=== PATIENT | female | born 1950 | race Caucasian/White ===

== ENCOUNTER 2018-10-02 09:24 | Emergency (ER) | payer MEDICARE ==
[~2018-10-02] VITALS: Ht 170.2 cm; Wt 86.4 kg
[2018-10-02 09:25] VITALS: BP 164/73
[2018-10-02] MEDS ORDERED: BENA10TA6 PO (09:35)
[2018-10-02] MEDS ORDERED: LIPI10TA PO (09:35)
[2018-10-02] MEDS ORDERED: ACET30TAB PO ×2 (10:13→10:16)
--- NOTE | 2018-10-02 10:14 | REP ---
Clinical: Trauma. Technique: AP and axial views of the right clavicle. Findings: Acute midclavicular shaft fracture with approximately 15 mm of displacement at the fracture site. The acromioclavicular joint appears intact. The sternoclavicular joint appears intact. Impression: Mid clavicular shaft fracture with displacement. Electronically Signed by Ezequiel Monroy MD 10/02/2018 10:06 A
== END 2018-10-02 10:23 | disposition home or self-care (01) ==
LOC: M ED 09:24
DX: S42.021A Displaced fracture of shaft of right clavicle, initial encounter for closed fracture (principal); W10.8XXA Fall (on) (from) other stairs and steps, initial encounter; Y92.098 Other place in other non-institutional residence as the place of occurrence of the external cause; F17.200 Nicotine dependence, unspecified, uncomplicated; I10 Essential (primary) hypertension; I95.9 Hypotension, unspecified; Z85.3 Personal history of malignant neoplasm of breast; Z90.11 Acquired absence of right breast and nipple; Z79.899 Other long term (current) drug therapy